=== PATIENT | male | born 1945 | race Caucasian/White ===

== ENCOUNTER → 2016-09-01 | Outpatient (CLI) | payer MEDICARE ==
--- NOTE | 2016-09-01 10:15 | MR ---
EXAMINATION TYPE: MR lumbar spine wo con DATE OF EXAM: 09/01/2016 COMPARISON: NONE HISTORY: Low back pain TECHNIQUE: T1 and T2 axial and sagittal images of the lumbar spine are submitted. FINDINGS: There is no abnormal signal seen within the visualized spinal cord or paraspinal soft tissu es. There are simple appearing bilateral renal cysts. Indeterminate bilateral adrenal nodule. At L1-2 there is is a focal right paracentral disc small herniation with moderate effacement of theca l sac but no spinal cord contact. Facet arthropathy noted. At L2-3 there is degenerative disc disease and hypertrophic change of the facets and ligamentum flavu m. Circumferential disc bulging greater paracentrally and laterally the right with mild bilateral for aminal encroachment and borderline canal stenosis. At L3-4 there is central and right paracentral broad-based disc bulging with mild to moderate right f oraminal encroachment and mild effacement of thecal sac. Borderline canal stenosis. Hypertrophy of th e ligamentum flavum and facets contribute. At L4-5 there is facet arthropathy with ligamentum flavum hypertrophy but no disc herniation or canal stenosis. Mild bilateral foraminal encroachment. At L5-S1 there is hypertrophic change of the facets. There is mild left foraminal encroachment and mo derate right foraminal encroachment. No canal stenosis or disc herniation. Right lateral disc bulging noted. IMPRESSION: 1. Focal right paracentral disc herniation L1-L2 with moderate distortion of the thecal sac and likel y some mass effect upon the cauda equina. No spinal cord contact. 2. Multilevel facet arthropathy and hypertrophy ligamentum flavum with disc bulging contributes to mu ltilevel foraminal encroachment and borderline canal stenosis. 3. Bilateral simple appearing renal cysts. 4. Indeterminate bilateral adrenal nodules appear retrospectively stable from the CT scan 07/29/2015..
== END | disposition home or self-care (01) ==
LOC: RADMRIMAIN 09:26
PROVIDERS: ATTEND Orthopaedic Surgery Orthopaedic Surgery of the Spine
DX: M48.06 Spinal stenosis, lumbar region (principal); M51.26 Other intervertebral disc displacement, lumbar region; M46.86 Other specified inflammatory spondylopathies, lumbar region; M24.28 Disorder of ligament, vertebrae
CPT/HCPCS: 72148

== ENCOUNTER 2016-10-14 09:19 | Day surgery (SDC) | payer MEDICARE ==
[2016-10-13 09:30] VITALS: BMI 24.2
[~2016-10-14 09:19] MED LIST: LIDOCAINE 1% 20 ML VIAL (10MG/ML) FOR IV START INTRADERMA PRN
[2016-10-14] MEDS ORDERED: INDOMETHACIN 50MG SUPPOSITORY RECTAL ONE (09:30)
[2016-10-14] MEDS ORDERED: LEVOFLOXACIN 500MG-D5W PMX 500 MG in DEXTROSE/WATER 1 100ML.BAG IVPB STA (09:51)
[2016-10-14] MEDS: LACTATED RINGERS 1,000 ML IV SCH ×2 (10:17→12:13)
[2016-10-14 10:19] LABS: Glucose,Whole Blood 157 mg/dL (75-99)
[2016-10-14 10:37] LABS: Anisocytosis Slight; Basophils % (A) 0 %; CHCM 32.2; Eosinophils # (A) 0.2 k/uL (0-0.7); Eosinophils % (A) 2 %; HCT 35.5 % (39.0-53.0); HDW 2.22; HGB 11.9 gm/dL (13.0-17.5); Luc % (Auto) 3; Lymphocytes # (A) 1.4 k/uL (1.0-4.8); Lymphocytes % (A) 14 %; MCH 33.6 pg (25.0-35.0); MCHC 33.7 g/dL (31.0-37.0); MCV 99.9 fL (80.0-100.0); Macrocytosis Slight; Mean Platelet Volume 7.9; Monocytes # (A) 0.8 k/uL (0-1.0); Monocytes % (A) 8 %; Neutrophils # (A) 7.4 k/uL (1.3-7.7); Neutrophils % (A) 73 %; RBC 3.55 m/uL (4.30-5.90); RDW 16.8 % (11.5-15.5); WBC 10.1 k/uL (3.8-10.6); WBC (Perox) 10.65
[2016-10-14] MEDS ORDERED: MIDAZOLAM 2 MG/2 ML VIAL IV ONE (10:43)
[2016-10-14 10:44] LABS: ALT 475 U/L (21-72); AST 322 U/L (17-59); Alkaline Phosphatase 776 U/L (38-126); Anion Gap 12 mmol/L; Blood Urea Nitrogen 27 mg/dL (9-20); Calcium 9.9 mg/dL (8.4-10.2); Carbon Dioxide 24 mmol/L (22-30); Chloride 103 mmol/L (98-107); Glucose 148 mg/dL (74-99); Non-African American GFR(MDRD) >60 (>60 ml/min/1.73 sqM); Potassium 4.9 mmol/L (3.5-5.1); Sodium 139 mmol/L (137-145); Total Protein 7.2 g/dL (6.3-8.2)
[2016-10-14 10:52] LABS: Total Bilirubin >46.0 mg/dL (0.2-1.3)
[2016-10-14 11:17] LABS: INR 1.2 (<1.2); Partial Thromboplastin Time 27.4 sec (22.0-30.0); Prothrombin Time 12.3 sec (9.0-12.0)
[2016-10-14] MEDS ORDERED: MIDAZOLAM 2 MG/2 ML VIAL ONE (12:21)
[2016-10-14] MEDS ORDERED: fentaNYL (PF) 50 MCG/ML 2 ML AMP ONE (12:21)
[2016-10-14] MEDS ORDERED: LIDOCAINE 1% INJ 10MG/ML (20 ML MDV) ONE (12:21)
[2016-10-14] MEDS ORDERED: GLYCOPYRROLATE 0.2 MG/ML 2 ML VIAL ONE (12:21)
[2016-10-14] MEDS ORDERED: PROPOFOL 10 MG/ML 20 ML VIAL IV ONE (12:21)
--- NOTE | 2016-10-14 12:45 | P.PCN ---
Date of Procedure: 10/14/16 Preoperative Diagnosis: Postoperative Diagnosis: Procedure(s) Performed: Brief history: Patient is a year-old pleasant 70-year-old white male, scheduled for an ERCP as part of evaluation of painless jaundice for the last 3 weeks' duration. He was noted to have elevated T bili and alkaline phosphatase with mild elevation of serum transaminases and a CT of the abdomen showed a 3 cm lesion in the head of the pancreas with significant dilation of the biliary system. Procedure performed: ERCP with CBD/cytology and CBD stent placement Preoperative diagnoses: Obstructive jaundice/CT of abdomen showed dilated CBD and a 3 cm lesion in the head of the pancreas. IV sedation per anesthesia: Procedure: After informed consent was obtained from the patient and after the risks benefits and complications including bleeding perforation and pancreatitis explained in detail the patient was brought into the endoscopy unit. The patient was placed in prone position and IV conscious sedation was administered by anesthesia under continuous monitoring. The Olympus side-viewing duodenoscope was then inserted into the mouth and esophagus intubated without any difficulty. The scope was gradually advanced into the stomach and duodenum. The major papilla was identified without any difficulty. Initial cannulation resulted in opacification of the common bile duct. Upon injection of the dye, the distal CBD appeared normal. There was a tight stricture involving the mid common bile duct extending 2 cm in length with significant proximal biliary ductal dilation. At this time a guidewire was passed through the cannula and proximal cytology was performed from the mid CBD stricture. Following this a 7-Wolof, 5 cm pigtail stent was placed in the proximal biliary system for biliary drainage. Subsequently at times at cannulating the pancreatic duct was not successful. The patient tolerated the procedure well. 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 Recommendations: The findings of this examination were discussed with the patient as well as a family. He was advised to follow with the biopsy results. He'll be seen in office in a week from now. CA 19-9 was requested today. Implants: Indications for Procedure: Operative Findings: Description of Procedure:
[2016-10-14] MEDS ORDERED: IOHEXOL 300 MG/ML 50 ML BOTTLE MISCELLANE ONE (12:47)
[2016-10-14 13:00] VITALS: TEMP 97.6
[2016-10-14 13:10] LABS: Glucose,Whole Blood 177 mg/dL (75-99)
[2016-10-14] MEDS ORDERED: LACTATED RINGERS 1,000 ML IV ONE (13:19)
--- NOTE | 2016-10-14 13:26 | FL ---
FLUOROSCOPY 2 minutes and 55 seconds of fluoroscopy time were utilized during ERCP. 5 images document the procedu re.
[2016-10-14 14:27] VITALS: BP 105/68; PULSE 56; RESP 16
== END 2016-10-14 14:43 | disposition home or self-care (01) ==
LOC: ORWHC2ENDO 09:19
PROVIDERS: ATTEND Internal Medicine Gastroenterology
DX: K83.1 Obstruction of bile duct (principal); I10 Essential (primary) hypertension; J44.9 Chronic obstructive pulmonary disease, unspecified; F17.200 Nicotine dependence, unspecified, uncomplicated; E11.9 Type 2 diabetes mellitus without complications; Z79.4 Long term (current) use of insulin; F41.9 Anxiety disorder, unspecified; F32.9 Major depressive disorder, single episode, unspecified; D49.0 Neoplasm of unspecified behavior of digestive system; Z79.84 Long term (current) use of oral hypoglycemic drugs; Z79.82 Long term (current) use of aspirin; Z79.51 Long term (current) use of inhaled steroids; Z79.899 Other long term (current) drug therapy
CPT/HCPCS: 88104; 88305; 80053; 85025; 85610; 85730; 74330; 43274; J2250; J1956; J2001; J3010; J2704; Q9967; C2625; C1769; 43260; 43261